=== PATIENT | male | born 1955 | race Caucasian/White ===

== ENCOUNTER 2016-09-09 16:26 | Day surgery (SDC) | payer MEDICARE, OTHER ==
[~2016-09-09] VITALS: Ht 172.7 cm; Wt 72.6 kg
[2016-09-09] MEDS ORDERED: OXYMETAZOLINE (AFRIN) 0.05% NA 15 ML BTL ONE (16:54)
--- NOTE | 2016-09-09 16:54 | ED EENT ---
History of Present Illness General Chief Complaint: Nasal Problems Stated Complaint: NOSEBLEED Source: patient Exam Limitations: no limitations History of Present Illness Time seen by provider: 16:52 Initial Comments To ER per private vehicle from [facility] with reports of nosebleed left- sided since this morning. He's got no history of this. He is on aspirin and Plavix. He does wear oxygen at night. He was seen at [facility] with nasal packing and Afrin without success. They call Dr. Rodriguez's office who referred the patient to their clinic today. The patient states that he went to Dr. Rodriguez's office but they looked like they were closed so he came on here to the hospital. Timing/Duration: this morning Severity: moderate Location: nose Associated Symptoms: denies symptoms Review of Systems Constitutional: see HPI Eyes: No Symptoms Reported Ears: No Symptoms Reported Nose: see HPI clots congestion Mouth: no symptoms reported Throat: no symptoms reported Respiratory: no symptoms reported Cardiovascular: no symptoms reported Past Jcgkwut-Awnben-Hheour Hx Patient Social History Recent Foreign Travel: No Contact w/Someone Who Travel: No Physical Exam Vital Signs Vital Sign - Last 12Hours 09/09/16 16:44 Temp 97.8 Pulse 96 Resp 18 B/P 171/119 Pulse Ox 93 O2 Delivery Room Air General Appearance: WD/WN no apparent distress Eyes: bilateral eye EOMI, bilateral eye PERRL, bilateral eye normal inspection Ears: bilateral ear TM normal, bilateral ear auricle normal, bilateral ear canal normal Nose: other (active bleeding from the left nostril. I've placed a rapid Rhino 5.5 cm. He was able to clear his throat and spit out a large clot. A large clot was also pulled from the left nare. Kristy Reyes APRN from Dr. Rodriguez's clinic here to see the patient.) Mouth/Throat: normal mouth inspection pharynx normal Neck: non-tender full range of motion Respiratory: normal breath sounds no respiratory distress no accessory muscle use Gastrointestinal: normal bowel sounds non tender soft Neurologic/Psychiatric: alert normal mood/affect oriented x 3 Skin: normal color warm/dry Progress/Results/Core Measures Results/Orders Lab Results Laboratory Tests Test 09/09/16 17:19 Range/Units My Orders Orders-KATIANA ROPER APRN Oxymetazoline 0.05% Nasal [place] (Afrin 0. (09/09/16 16:54) Saline Lock/Iv-Start (09/09/16 17:20) Cbc With Automated Diff (09/09/16 17:20) Basic Metabolic Panel (09/09/16 17:20) Ekg Tracing (09/09/16 17:20) Vital Signs/I&O Vital Sign - Last 12Hours 09/09/16 16:44 Temp 97.8 Pulse 96 Resp 18 B/P 171/119 Pulse Ox 93 O2 Delivery Room Air Departure Communication Time/Spoke to Admitting Phy: 17:23 Communication Jana Reyes have spoken with Dr. Rodriguez who plans to take the patient to the operating room. Impression Impression: Primary Impression: Epistaxis Disposition: ADMITTED INPATIENT Condition: Stable Decision to Admit Reason: Admit from ER (General) Decision to Admit/Date: Sep 09, 2016 Time/Decision to Admit Time: 17:24 Departure-Patient Inst. Referrals: NO,LOCAL PHYSICIAN (PCP/Family) Primary Care Physician KATIANA ROPER APRN Sep 09, 2016 16:53
[2016-09-09 17:25] LABS: BASOPHILS # (AUTO) 0.1 10^3/uL (0.0-0.1); BASOPHILS % (AUTO) 0 % (0-10); EOSINOPHILS % (AUTO) 0 % (0-10); LYMPHOCYTES # (AUTO) 1.5 X 10^3 (1.0-4.0); LYMPHOCYTES % (AUTO) 12 % (12-44); MEAN CORPUSCULAR HEMOGLOBIN 28 PG (25-34); MEAN CORPUSCULAR HGB CONC 34 G/DL (32-36); MEAN CORPUSCULAR VOLUME 82 FL (80-99); MEAN PLATELET VOLUME 10.9 FL (7.4-10.4); MONOCYTES # (AUTO) 0.8 X 10^3 (0.0-1.0); MONOCYTES % (AUTO) 7 % (0-12); NEUTROPHILS % (AUTO) 81 % (42-75); PLATELET COUNT 265 10^3/uL (130-400); RED BLOOD COUNT 5.85 10^6/uL (4.35-5.85); RED CELL DISTRIBUTION WIDTH 14.9 % (10.0-14.5); WHITE BLOOD COUNT 12.3 10^3/uL (4.3-11.0)
[2016-09-09 17:50] LABS: CALCIUM 9.6 MG/DL (8.5-10.1); CREATININE SERUM 1.35 MG/DL (0.60-1.30); POTASSIUM 4.6 MMOL/L (3.6-5.0)
[2016-09-09] MEDS ORDERED: FAMOTIDINE 20MG/2ML IV (PEPCID) ONE (18:05)
[2016-09-09] MEDS ORDERED: METOCLOPRAMIDE INJ 10 MG/2 ML (REGLAN) ONE (18:05)
[2016-09-09] MEDS ORDERED: COCAINE HCL 4% 2 ML SYR ONE (18:07)
[2016-09-09] MEDS ORDERED: PHENYLEPHRINE 0.5% NASAL SPR (NEO-SYNEPHRINE) REG ONE (18:07)
[2016-09-09] MEDS ORDERED: MUPIROCIN 2% OINT 22 GM (BACTROBAN) TUBE ONE (18:08)
[2016-09-09] MEDS ORDERED: METOCLOPRAMIDE INJ 10 MG/2 ML (REGLAN) IVP ONE (18:15)
[2016-09-09] MEDS ORDERED: ONDANSETRON 4 MG/2 ML (SDV) Z0FRAN ONE (18:15)
[2016-09-09] MEDS ORDERED: LIDOCAINE JELLY 2% (XYLOCAINE) 5 ML TUBE ONE (18:15)
[2016-09-09] MEDS ORDERED: FAMOTIDINE 20MG/2ML IV (PEPCID) IVP ONE (18:15)
[2016-09-09] MEDS ORDERED: LACTATED RINGERS 1,000 ML IV ONE (18:15)
[2016-09-09] MEDS ORDERED: fentaNYL INJECTION 100 MCG/2 ML AMP ONE (18:15)
[2016-09-09] MEDS ORDERED: proPOfol 200 MG/20 ML (DIPRIVAN) VIAL IV ONE ×2 (18:15→18:53)
[2016-09-09] MEDS ORDERED: ROCURONIUM 50 MG/5 ML (ZEMURON) VIAL IV ONE (18:15)
[2016-09-09] MEDS ORDERED: LIDOCAINE PF 2% 10 ML (XYLOCAINE) AMP ONE (18:15)
[2016-09-09] MEDS ORDERED: MIDAZOLAM 2 MG/2 ML (VERSED) VIAL ONE (18:16)
--- NOTE | 2016-09-09 18:19 | Progress Note-Pre Operative ---
Pre-Operative Progress Note H&P Reviewed The H&P was reviewed, patient examined and no changes noted. Date H&P Reviewed: Sep 09, 2016 Time H&P Reviewed: 18:10 Pre-Operative Diagnosis: Left Posterior Epistaxis TRINO LYNCH MD Sep 09, 2016 6:19 pm
[2016-09-09] MEDS ORDERED: LIDOCAINE/EPI 1%-1:200,000 (XYLOCAINE) 30 ML VIAL ONE (18:28)
[2016-09-09] MEDS ORDERED: SEVOFLURANE (ULTANE) 15 ML INHAL SOLN ONE ×3 (18:37→19:06)
[2016-09-09] MEDS ORDERED: SUCCINYLCHOLINE INJ 100 MG/5 ML SYR ONE (18:37)
[2016-09-09] MEDS ORDERED: LACTATED RINGERS 1,000 ML IV PRN (18:47)
[2016-09-09] MEDS ORDERED: ONDANSETRON 4 MG/2 ML (SDV) Z0FRAN IVP PRN (19:30)
[2016-09-09] MEDS ORDERED: morphine INJ 10 MG/ML 1ML (SYR OR VIAL) IVP PRN (19:30)
[2016-09-09] MEDS ORDERED: MEPERIDINE (DEMEROL) INJ 50 MG/ML IVP PRN (19:30)
--- NOTE | 2016-09-09 19:31 | Progress Note-Post Operative ---
Post-Operative Progess Note Pre-Operative Diagnosis Left Posterior Epistaxis Post-Operative Diagnosis same Post-Op Procedure Note Date of Procedure: Sep 09, 2016 Name of Procedure: Endoscopic Repair of Left Posterior Epiestaxis Anesthesia Type get Estimated blood loss (mL): less than 50cc at time of surgery Packing: DNP-left side of nose TRINO LYNCH MD Sep 09, 2016 7:31 pm
[2016-09-09] MEDS ORDERED: LABETALOL HCL 20 MG/4 ML VIAL ONE (19:34)
[2016-09-09] MEDS ORDERED: PHENYLEPHRINE 0.5% NASAL SPR (NEO-SYNEPHRINE) REG PRN (19:45)
[2016-09-09] MEDS ORDERED: LABETALOL HCL 20 MG/4 ML VIAL IV ONE (19:45)
[2016-09-09] MEDS ORDERED: HYDROcodone/APAP 5 MG/325 MG (LORTAB) TAB PO PRN (19:45)
[2016-09-09] MEDS ORDERED: ACETAMINOPHEN 500 MG TAB (TYLENOL) PO PRN (19:45)
[2016-09-09 20:20] VITALS: BP 177/91
[2016-09-09] MEDS: D5 1/2 NS W/KCL 20 MEQ/L 1,000 ML IV SCH (20:58)
[2016-09-09 21:00] VITALS: BP 163/93
[2016-09-09 22:00] VITALS: BP 145/98
[2016-09-09 23:00] VITALS: BP 144/89
[2016-09-10] VITALS: BP 148/78
[2016-09-10 03:50] VITALS: BP 139/87
[2016-09-10] MEDS ORDERED: RT-ALBUTEROL SULF 2.5 MG/3 ML PRE-MIX VIAL ONE (06:16)
--- NOTE | 2016-09-10 06:19 | Progress Note-Standard ---
Standard Progress Note Progress Notes/Assess & Plan Progress/Assessment & Plan ENT-Jennifer Doing well-minimal oozing Needs a breathing treatment OP-dry will discharge after lunch if doing well and no signfiicant bleeding RTC-2 weeks [facility] Nosebleed discharge insturctions Discharge prescriptions given to nurse Final Diagnosis Left Posterior Epistaxis TRINO LYNCH MD Sep 10, 2016 6:19 am
[2016-09-10 08:00] VITALS: BP 139/87
[2016-09-10] MEDS: D5 1/2 NS W/KCL 20 MEQ/L 1,000 ML IV SCH (08:51)
[2016-09-10] MEDS ORDERED: RT-ALBUTEROL SULF 2.5 MG/3 ML PRE-MIX VIAL INH SCH (11:00)
[2016-09-10] MEDS ORDERED: HYDR-3812 PO (12:08)
[2016-09-10] MEDS ORDERED: CEPH-507 PO (12:08)
[2016-09-10 13:00] VITALS: BP 139/87
== END 2016-09-10 13:15 | disposition home or self-care (01) ==
LOC: ER 16:28 → SDC 17:39 → EDBD 17:39 → 4TH 20:15 → SDC 09-10 13:15
PROVIDERS: ATTEND Otolaryngology Otolaryngology/Facial Plastic Surgery
DX: R04.0 Epistaxis (principal); I50.9 Heart failure, unspecified; J44.9 Chronic obstructive pulmonary disease, unspecified; Z79.82 Long term (current) use of aspirin; Z79.02 Long term (current) use of antithrombotics/antiplatelets
CPT/HCPCS: 36415; 80048; 85025; 93005; 94640; 94760